=== PATIENT | female | born 1980 | race American Indian/Alaskan Native ===

== ENCOUNTER 2019-12-21 09:19 | Emergency (ER) | payer SELFPAY ==
[2019-12-21 09:30] VITALS: BP 123/54
[2019-12-21 10:15] LABS: Basophils % (Auto) 0.5 % (0.0-1.8); Eosinophils # (Auto) 0.1 K/mm3 (0.0-0.4); Hematocrit 38.9 % (30.3-42.9); Hemoglobin 12.8 gm/dl (10.1-14.3); Lymphocytes # (Auto) 1.7 K/mm3 (1.2-5.4); Lymphocytes % (Auto) 36.1 % (13.4-35.0); Mean Corpuscular HGB Conc 33 % (30-34); Mean Corpuscular Volume 92 fl (79-97); Monocytes # (Auto) 0.5 K/mm3 (0.0-0.8); Monocytes % (Auto) 10.2 % (0.0-7.3); Platelet Count 286 K/mm3 (140-440); Red Blood Count 4.22 M/mm3 (3.65-5.03); Red Cell Distribution Width 15.2 % (13.2-15.2)
--- NOTE | 2019-12-21 11:44 | Emergency Department Report ---
HPI - General Chief Complaint: Vaginal Bleeding Time Seen by Provider: 12/21/19 11:24 - HPI HPI: 39-year-old female, who speaks Slovak, presents to the emergency department with complaint of right pelvic pain and moderate to heavy vaginal bleeding. The patient lives here now but previously had a licensed psychologist in [place] and the patient says that she was diagnosed with a fallopian tube infection in March of last year. She also has a history of abnormal menstrual bleeding for which she was previously placed on a hormone that appears to be something similar to Provera. She usually gets some right-sided pelvic pain during the menstrual cycles but more recently it has been constant. She has been taking Midol for her symptoms without any relief. She denies any fever, dysuria, vaginal discharge. ED Past Medical Hx - Past Medical History Previous Medical History?: No - Surgical History Past Surgical History?: No - Medications Home Medications: Home Medications Medication Instructions Recorded Confirmed Last Taken Type HYDROcodone/APAP 5-325 [Alfred 1 each PO Q6HR PRN #10 tablet 12/21/19 Unknown Rx 5/325] ED Review of Systems ROS: Stated complaint: BLEEDING Other details as noted in HPI Comment: All other systems reviewed and negative Constitutional: denies: chills, fever Eyes: denies: eye pain, vision change ENT: denies: ear pain, throat pain Respiratory: denies: cough, shortness of breath Cardiovascular: denies: chest pain, palpitations Gastrointestinal: denies: vomiting, diarrhea Genitourinary: abnormal menses, other (pelvic pain). denies: dysuria, discharge Musculoskeletal: denies: back pain, arthralgia Skin: denies: rash, lesions Neurological: denies: headache, weakness Physical Exam - Physical Exam Vital Signs: Vital Signs 12/21/19 09:28 Temperature 99.1 F Pulse Rate 85 Respiratory 16 Rate Blood Pressure 123/54 O2 Sat by Pulse 98 Oximetry Physical Exam: GENERAL: The patient is well-developed well-nourished. HEENT: Normocephalic. Atraumatic. Patient has moist mucous membranes. EYES: Extraocular motions are intact. NECK: Supple. Trachea is midline. CHEST/LUNGS: Clear to auscultation. There is no respiratory distress noted. HEART/CARDIOVASCULAR: Regular. There is no tachycardia. There is no murmur. ABDOMEN: Abdomen is soft. There is lower abdominal and upper pelvic tenderness to palpation. No guarding. Patient has normal bowel sounds. There is no abdominal distention. SKIN:Skin is warm and dry. . NEURO: The patient is awake, alert, and oriented. The patient is cooperative. The patient has no focal neurologic deficits. Normal speech. MUSCULOSKELETAL: There is no tenderness or deformity. There is no evidence of acute injury. ED Course Vital Signs 12/21/19 09:28 Temperature 99.1 F Pulse Rate 85 Respiratory 16 Rate Blood Pressure 123/54 O2 Sat by Pulse 98 Oximetry ED Medical Decision Making - Lab Data Result diagrams: 12/21/19 09:45 12/21/19 09:45 - Radiology Data Radiology results: report reviewed ULTRASOUND PELVIS DUPLEX DOPPLER COMPLETE ULTRASOUND TRANSVAGINAL HISTORY: Right pelvic pain, history of fallopian tube infection TECHNIQUE: Transabdominal and transvaginal imaging with color and spectral Doppler interrogation. COMPARISON: None at this facility. FINDINGS: The uterus is anteverted. The uterus measures 9.7 x 5.0 x 8.6 cm. Multiple fibroids are identified. A 3.8 x 3.2 cm peripherally calcified fibroid is identified in the left lateral wall. A similar appearing 2.5 cm peripherally calcified fibroid is identified in the uterine fundus. The endometrial stripe measures 15 mm. The right ovary measures 5.4 x 3.7 x 4.6 cm and contains a 3.0 cm complex cyst containing debris. The left ovary is unremarkable measuring 3.6 x 0.6 x 3.6 cm. Trace pelvic fluid appears physiologic. Spectral Doppler waveforms demonstrate arterial flow to both ovaries. IMPRESSION: 3 cm complex right ovarian cyst. - Medical Decision Making This patient presents to the emergency department with the complaint of some abnormal vaginal bleeding and progressive worsening pelvic pains. Patient's labs are unremarkable. Hemoglobin is 12.8. Normal metabolic panel. Urinalysis does not show any urinary tract infection and the patient is not . A transvaginal ultrasound was done given her discomfort and her history of some ovarian or fallopian infection she has had in the past. The ultrasound came back showing a 3 cm complex right ovarian cyst. She also has diffuse fibroid disease of the uterus. The uterine fibroids is most likely the reason for the patient's abnormal vaginal bleeding. She is already on a medication that appears to be similar to Provera that she takes around the time of her menstrual cycle. The ovarian cyst will need further evaluation but does not appear to be anything that is emergent or life-threatening and the patient will follow-up outpatient for this. She has been given multiple referrals for local [facility] group's. She was given a prescription for some analgesia. She will return to the ER with any worsening of her symptoms or any acute distress. - Differential Diagnosis fibroids, ovarian torsion, ovarian cyst, Critical Care Time: No Critical care attestation.: If time is entered above; I have spent that time in minutes in the direct care of this critically ill patient, excluding procedure time. ED Disposition Clinical Impression: Complex cyst of right ovary Fibroid uterus Qualifiers: Uterine leiomyoma location: unspecified location Qualified Code(s): D25.9 - Leiomyoma of uterus, unspecified Disposition: - TO HOME OR SELFCARE Is pt being admited?: No Condition: Stable Instructions: Ovarian Cyst (ED), Uterine Fibroids (ED) Additional Instructions: Please follow up with a primary care physician and FRE[facility] COORDINATOR in the next few days. Return to the emergency Department with any worsening of your symptoms or any acute distress. You have been prescribed a medication that can be sedating. Therefore, this medication cannot be taken prior to driving, working, being responsible for children, and cannot be mixed with alcohol of any quantity. Prescriptions: HYDROcodone/APAP 5-325 [Alfred 5/325] 1 each PO Q6HR PRN #10 tablet PRN Reason: Pain Referrals: [facility] CAREM[facility] [Primary Care Provider] - 2-3 Days [facility] [Provider Group] - 2-3 Days [facility] [Provider Group] - 2-3 Days [facility] [Provider Group] - 2-3 Days Time of Disposition: 14:02
--- NOTE | 2019-12-21 13:14 | Ultrasound Report ---
ULTRASOUND PELVIS DUPLEX DOPPLER COMPLETE ULTRASOUND TRANSVAGINAL HISTORY: Right pelvic pain, history of fallopian tube infection TECHNIQUE: Transabdominal and transvaginal imaging with color and spectral Doppler interrogation. COMPARISON: None at this facility. FINDINGS: The uterus is anteverted. The uterus measures 9.7 x 5.0 x 8.6 cm. Multiple fibroids are identified. A 3.8 x 3.2 cm peripherally calcified fibroid is identified in the left lateral wall. A similar appear ing 2.5 cm peripherally calcified fibroid is identified in the uterine fundus. The endometrial stripe measures 15 mm. The right ovary measures 5.4 x 3.7 x 4.6 cm and contains a 3.0 cm complex cyst containing debris. The left ovary is unremarkable measuring 3.6 x 0.6 x 3.6 cm. Trace pelvic fluid appears physiologic. Spectral Doppler waveforms demonstrate arterial flow to both ovaries. IMPRESSION: 3 cm complex right ovarian cyst. Signer Name: Nasir Qiu Jr, MD Signed: 12/21/2019 1:09 PM Workstation Name: [id number]
[2019-12-21 14:23] LABS: Bilirubin,Urine NEG (Negative); Blood,Urine SM (Negative); Color,Urine Straw (Yellow); Protein,Urine <15 mg/dL mg/dL (Negative); Urobilinogen,Urine < 2.0 mg/dL (<2.0); WBC,Urine < 1.0 /HPF (0.0-6.0)
[2019-12-21 15:04] LABS: BUN/Creatinine Ratio 19; Blood Urea Nitrogen 13 mg/dL (7-17); Calcium 9.4 mg/dL (8.4-10.2); Hemolysis Index 9
== END 2019-12-21 14:20 | disposition home or self-care (01) ==
LOC: ED 09:19
DX: N83.201 Unspecified ovarian cyst, right side (principal); D25.9 Leiomyoma of uterus, unspecified
CPT/HCPCS: 36415; 76830; 80048; 81001; 84702; 85025; 86900; 86901; 93975; 99284

== ENCOUNTER 2019-12-31 08:58 | Emergency (ER) | payer SELFPAY ==
[2019-12-31 09:13] VITALS: BP 115/89
--- NOTE | 2019-12-31 10:06 | Emergency Department Report ---
Chief Complaint: Extremity Problem,Nontraumatic Stated Complaint: LEG PAIN Time Seen by Provider: 12/31/19 09:46 - HPI History of Present Illness: Patient is a 39-year-old female presents emergency room with complaints of right hip pain that radiates down the right leg that began 4 months ago. She denies any fall or injury. She denies any numbness or weakness. She states that she stands for 8 hours a day and it becomes uncomfortable while standing. She is ambulatory. She has not seen orthopedic doctor for this. She has a past medical history of fibroids. She states that she saw an DATA CONTROL ASSISTANT for the fibroids and states that this is not related to her leg pain and was given a prescription for naproxen but was not given a referral to an orthopedic doctor. She denies any allergies to medications. vitals are normal on exam: non toxic appearing, no acute distress FROM of the entire RLE without difficulty or pain elicited, no edema, no ecchymosis, no joint laxity, no deformity, no bony ttp of the RLE, no calf ttp, no leg swelling, neurovascularly intact No clinical signs of DVT, no trauma or deformity no need for emergent imaging, no signs of septic joint Patient is presenting with a nonmedical emergency at this time, medical screening examination performed and there is no threat to life or limb Could be related to arthritis versus tensor fascia eli syndrome versus piriformis syndrome Advised patient to continue to take the medication she was prescribed by the medical administrative technician as needed Will refer patient to orthopedic doctor for further evaluation and management Patient given strict return precautions - Exam Vital Signs: Vital Signs 12/31/19 09:11 Temperature 99.2 F Pulse Rate 85 Respiratory 20 Rate Blood Pressure 115/89 O2 Sat by Pulse 99 Oximetry MSE screening note: Focused history and physical exam performed. Due to findings the following was ordered: ED Disposition for MSE Clinical Impression: Right hip pain, Right leg pain Disposition: Z-07 MED SCREENING EXAM-LEFT Is pt being admited?: No Does the pt Need Aspirin: No Condition: Stable Instructions: Arthralgia (ED) Additional Instructions: Please continue taking the medication you were already prescribed as needed. Follow-up with orthopedic doctor in the next 2 to 3 days for further evaluation and management. Return to the emergency room for any new or worsening symptoms. Referrals: [facility] MD [Staff Physician] - 2-3 Days [facility] [Provider Group] - 2-3 Days Time of Disposition: 10:06 Print Language: CZECH
== END 2019-12-31 10:30 | disposition left against medical advice (07) ==
LOC: ED 08:58
DX: M25.551 Pain in right hip (principal); M79.604 Pain in right leg
CPT/HCPCS: 99281